=== PATIENT | male | born 1965 | race Caucasian/White ===

== ENCOUNTER 2016-10-07 08:44 | Outpatient (CLI) | payer OTHER ==
[2012-11-02 21:18] VITALS: BP 139/92
== END 2016-10-07 08:45 ==
LOC: LAB 08:44
PROVIDERS: ATTEND Family Medicine
DX: R73.9 Hyperglycemia, unspecified (principal)
CPT/HCPCS: 36415; 83036

== ENCOUNTER 2017-04-14 08:52 | Outpatient (CLI) | payer OTHER ==
[2012-11-02 21:18] VITALS: BP 139/92
== END 2017-04-14 08:54 ==
LOC: LAB 08:52
PROVIDERS: ATTEND Family Medicine
DX: E11.9 Type 2 diabetes mellitus without complications (principal)
CPT/HCPCS: 36415; 83036

== ENCOUNTER 2018-05-06 09:45 | Outpatient (CLI) | payer OTHER ==
[2012-11-02 21:18] VITALS: BP 139/92
--- NOTE | 2018-05-06 13:16 | Diagnostic Imaging Report ---
SHLOMO DE ANDA [facility] [address] [facility] [address] [id number] Report Submission Date: May 06, 2018 10:52:12 AM CASE OPERATOR Patient Study Name: KEVIN MENDEZ Date: May 06, 2018 9:57:00 AM CASE OPERATOR Modality Type: DX Gender: M Description: FOOT 3 VIEWS OR MORE : 61 Institution: [facility] Physician: SHLOMO DE ANDA Examination: Plain film right foot History: PAIN IN RT HEEL X2-3 WEEKS, NO KNOWN INJURY, PT STATES BROKEN ANKLE X14 YEARS AGO Findings: 3 views of the right foot demonstrates osteopenia. Articular degenerative changes. 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 No suspicious cortical lucency. Fixation pins involving the medial malleolus. Calcaneal spurs. Impression: Osteopenia and articular degenerative changes. No suspicious cortical lucencies. Electronically signed on May 06, 2018 10:52:12 AM CASE OPERATOR by: Angel WOOD
== END 2018-05-06 09:47 ==
LOC: RAD 09:45
PROVIDERS: ATTEND Family Medicine
DX: M85.871 Other specified disorders of bone density and structure, right ankle and foot (principal); M24.174 Other articular cartilage disorders, right foot; M79.671 Pain in right foot
CPT/HCPCS: 73630

== ENCOUNTER 2018-05-26 13:39 | Outpatient (CLI) | payer OTHER ==
[2012-11-02 21:18] VITALS: BP 139/92
--- NOTE | 2018-05-26 14:17 | Diagnostic Imaging Report ---
CAITLIN HENDERSON [facility] [address] [facility] [address] [id number] Report Submission Date: May 26, 2018 2:03:02 PM CDT Patient Study Name: KEVIN MENDEZ Date: May 26, 2018 1:42:56 PM CDT Modality Type: DX Gender: M Description: FOOT 3 VIEWS OR MORE : 61 Institution: [facility] Physician: CAITLIN HENDERSON Examination: Plain film right foot History: RIGHT HEEL POP AND PAIN Findings: 3 views of the right foot demonstrates osteopenia and degenerative changes. No fracture or dislocation. Calcaneal spurs. Medial malleolar fixation screws. No soft tissue swelling. No joint effusion. Impression: Osteopenia and degenerative changes. No acute appearing cortical abnormality. If suspected Achilles tendon or plantar fascia abnormality, consider obtaining MRI to further evaluate. Electronically signed on May 26, 2018 2:03:02 PM CDT by: Angel WOOD
== END 2018-05-26 13:40 ==
LOC: RAD 13:39
PROVIDERS: ATTEND Podiatrist Foot & Ankle Surgery
DX: M79.671 Pain in right foot (principal); E11.9 Type 2 diabetes mellitus without complications
CPT/HCPCS: 73630